=== PATIENT | male | born 1990 | race Asian ===

== ENCOUNTER 2018-12-25 05:47 | Emergency (ER) | payer BC ==
[~2018-12-25] VITALS: Ht 170.2 cm; Wt 61.4 kg
[2018-12-25 05:53] VITALS: TEMP 98.1
[2018-12-25 06:16] LABS: HEMATOCRIT 46.3 % (42.0-52.0); HEMOGLOBIN 15.8 g/dl (13.5-18.0); MEAN CELL VOLUME 90 fl (80.0-100.0); MEAN CORPUSCULAR HEMOGLOBIN 31 pg (27.0-31.0); MEAN CORPUSCULAR HGB CONC 34 g/dl (33.0-37.0); MEAN PLATELET VOLUME 9.8 fl (7.4-10.4); PLATELET COUNT 275 K/mm3 (130-400); RED BLOOD COUNT 5.17 M/mm3 (4.20-5.60); REDCELL DISTRIBUTION WIDTH-CV 11.6 % (11.5-14.5)
[2018-12-25 06:26] LABS: ALBUMIN 4.6 gm/dL (3.5-5.0); BILIRUBIN,TOTAL 0.4 mg/dL (0.0-1.0); CALCIUM 9.5 mg/dL (8.4-10.2); CREATININE, serum 0.9 (0.66-1.25); POTASSIUM 4.1 mmol/L (3.4-5.0); TOTAL PROTEIN 8.4 gm/dL (6.4-8.2)
[2018-12-25] MEDS ORDERED: ZOFRAN ODT4 MG PO (07:28)
[2018-12-25 09:13] LABS: BAND 9 % (0-10); LYMPHOCYTE 7 % (20.0-51.0); NEUTROPHILS 80 % (42.0-75.2)
[2018-12-25 11:12] VITALS: BP 118/72; PULSE 78
== END 2018-12-25 11:12 | disposition home or self-care (01) ==
LOC: COL.ER 05:47
PROVIDERS: Emergency Medicine
DX: R19.7 Diarrhea, unspecified (principal); R11.10 Vomiting, unspecified
CPT/HCPCS: J2765; J3010; J7030